=== PATIENT | female | born 1975 | race Caucasian/White ===

== ENCOUNTER → 2016-10-21 | Outpatient (CLI) | payer BC ==
[~2016-10-21] MED LIST: CALCIUM 600 +1 EA12 PO; CYMBALTA30 MG PO; IBUPROFEN800 MG PO; K-TAB 10MEQ10 MEQ PO; PERCOCET 5-3251 EACH PO; SYNTHROID112 MCG PO; VITAMIN B-121000 MCG PO; VITAMIN D-32000 UNI1 PO; ZESTORETIC 20-1 EACH PO
== END | disposition disaster alternative care site (69) ==
LOC: GBCOE 11:30
DX: Z12.31 Encounter for screening mammogram for malignant neoplasm of breast (principal)
CPT/HCPCS: G0202